=== PATIENT | female | born 1985 | race Caucasian/White ===

== ENCOUNTER 2019-01-10 01:15 | Emergency (ER) | payer OTHER ==
[~2019-01-10] VITALS: Ht 152.4 cm; Wt 99.8 kg
[2019-01-10 01:20] VITALS: BP 134/75
--- NOTE | 2019-01-10 01:47 | NUR ---
PT C/O INFLAMMATION AND CELLULITIS TO RT FOOT S/P BUG BITE. PT STATES SHE WAS SEEN AT URGENT CARE TODAY AND PRESCRIBED ANTIBIOTICS BUT SHE HAS NOT HAD PRESCRIPTION FILLED YET. RT FOOT RED, SLIGHTLY SWOLLEN, NO PITTING EDEMA. PT STATES PAIN UPON AMBULATION. +CMS. PT CALM IN BED. VSS AT THIS TIME. NO FURTHER COMPLAINTS. ALLERGIES: DENIES
[2019-01-10] MEDS ORDERED: SULFAMETH/TRIMETH DS 800/160MG 1 TAB PO ONE (01:50)
[2019-01-10] MEDS ORDERED: CEPHALEXIN 500 MG CAP PO ONE (01:50)
--- NOTE | 2019-01-10 01:50 | NUR ---
DR FREITAS AT BEDSIDE EXAMINING PT.
--- NOTE | 2019-01-10 02:11 | NUR ---
Patient discharged with v/s stable. Written and verbal after care instructions given and explained. Patient alert, oriented and verbalized understanding of instructions. Ambulatory with to home. All questions addressed prior to discharge. ID band removed. Patient advised to follow up with PMD. Rx of IBURPROFEN 600MG given. Patient educated on indication of medication including possible reaction and side effects. Opportunity to ask questions provided and answered.
[2019-01-10 02:12] VITALS: BP 134/75
== END 2019-01-10 02:12 | disposition home or self-care (01) ==
LOC: MED 01:15
DX: L03.115 Cellulitis of right lower limb (principal)
CPT/HCPCS: 99283

== ENCOUNTER 2020-08-21 02:00 | Emergency (ER) | payer OTHER ==
[~2020-08-21] VITALS: Ht 152.4 cm; Wt 103.4 kg
[2020-08-21 02:05] VITALS: BP 148/96
--- NOTE | 2020-08-21 02:20 | NUR ---
35 yo female c/o left leg pain since this morning. pt does have a bruise on that leg. No warmth noted. Pt is able to ambulate without assistance. Ermd at bedside pmh- none
[2020-08-21 02:33] VITALS: BP 122/79
--- NOTE | 2020-08-21 02:35 | NUR ---
Patient discharged with v/s stable. Written and verbal after care instructions given and explained. Patient verbalized understanding. Ambulatory with steady gait. All questions addressed prior to discharge. Advised to follow up with PMD.
== END 2020-08-21 02:35 | disposition home or self-care (01) ==
LOC: MED 02:00
DX: S80.12XA Contusion of left lower leg, initial encounter (principal); F17.210 Nicotine dependence, cigarettes, uncomplicated; X58.XXXA Exposure to other specified factors, initial encounter; Y93.89 Activity, other specified; Y92.89 Other specified places as the place of occurrence of the external cause; Y99.8 Other external cause status
CPT/HCPCS: 99281